=== PATIENT | male | born 1960 | race Caucasian/White ===

== ENCOUNTER → 2020-02-18 17:11 | Outpatient (CLI) | payer OTHER, SELFPAY | PROVIDERS: PCP Family Medicine; Referring Provider Family Medicine; Visit Provider Family Medicine | DX: Z03.818 Encounter for observation for suspected exposure to other biological agents ruled out (principal); R50.9 Fever, unspecified; M79.10 Myalgia, unspecified site | CPT/HCPCS: 87635; C9803; U0003 ==